=== PATIENT | male | born 1950 | race Caucasian/White ===

== ENCOUNTER 2022-06-05 11:44 | Emergency (ER) | payer MEDICARE, SELFPAY ==
[2022-06-05 11:55] VITALS: BP 138/92; PULSE 66; RESP 14; TEMP 36.1; O2SAT 97; BMI 32.8
--- NOTE | 2022-06-05 13:27 | DI.RAD.S_ITS ---
PROCEDURE: XR LUMBAR SPINE 2-3V INDICATIONS: back pain TECHNIQUE: 3 views of the lumbar spine were acquired. COMPARISON: None. FINDINGS: Bones: 5 [id number] vertebrae are present. There is normal bony alignment. 20% L1 wedge-shaped compression fracture noted, uncertain age. Diffuse disc space narrowing and hypertrophic facet joints noted throughout the exam particularly in the lower lumbar spine. Normal bone mineralization present. Soft tissues: Overlying bowel gas pattern is normal. No suspicious soft tissue calcifications. IMPRESSION: 1. Mild L1 compression fracture, uncertain age. 2. Multilevel degenerative disc disease and arthropathy particularly lower lumbar spine Approved by: Robert Gil M.D. on 06/05/2022 at 14:11
--- NOTE | 2022-06-05 13:30 | ED_ITS ---
HPI - Back Pain/Injury <CJ Isidro - Last Filed: 06/05/22 15:37> General Chief Complaint: Back Pain/Injury Stated Complaint: LOW BACK PAIN Time Seen by Provider: 06/05/22 13:27 Source: patient History of Present Illness HPI Narrative: This is a 71-year-old male with history low back pain with laminectomy of his lumbar spine approximately 20 years ago with history of sciatica down his right leg at that time who presents to the emergency department today for worsening low back pain with radiation down his anterior right leg and down to his lares. Patient states that he has worse pain when he twists to the left side or when he lays on his left side in bed. States that he has not had pain like this since his laminectomy approximately 20 years ago. Denies any incontinence, fever, new weakness, states that occasionally he has shooting pain down the anterior of his leg down to lares and that feels like like weakness. Patient denies any sensation changes at baseline, denies any difficulty ambulating, denies any abdominal pain, nausea vomiting, recent illness. States that he takes Tylenol and ibuprofen as needed pain. But this is worse than usual. Related Data Previous Rx's Medication Instructions Recorded diclofenac sodium 1 % topical gel 4 g topical QID PRN back pain #100 06/05/22 grams hydrocodone 5 mg-acetaminophen 325 1 tab PO BID PRN pain #10 tabs 06/05/22 mg tablet methocarbamol 500 mg tablet 500 mg PO TID PRN muscle spasm #14 06/05/22 tabs Allergies Allergy/AdvReac Type Severity Reaction Status Date / Time No Known Drug Allergies Allergy Verified 06/05/22 11:55 Review of Systems <CJ Isidro - Last Filed: 06/05/22 15:37> Review of Systems Narrative: General: denies fever, chills Head/Neck: denies headache, neck pain Eyes: denies visual changes, eye pain Cardio: denies chest pain, palpitations Respiratory: denies shortness of breath, cough GI: denies abdominal pain, nausea, vomiting, or diarrhea : denies dysuria, hematuria or flank pain MSK: denies new joint pain, muscle weakness or swelling, endorses low back pain which is worsening constant sharp in nature with radiation down the right leg Skin: denies rash, itching or wound Neuro: denies numbness, tingling, dizziness Patient History <JC Isidro - Last Filed: 06/05/22 15:37> Social History Smoking Status: Unknown if ever smoked Smoking Status: Unknown if ever smoked alcohol intake frequency: holidays/special occasions only Substance Use Type: does not use Exam <CJ Isidro - Last Filed: 06/05/22 15:37> Narrative Exam Narrative: Independently reviewed vitals signs and nursing notes. General: Awake, alert, nontoxic, no cardiorespiratory distress Head/Neck: Atraumatic, neck supple Eyes: EOMI, conjunctiva normal Nose: nares patent, no rhinorrhea Mouth/Throat: moist mucus membranes Cardio: Regular rate and rhythm, no peripheral edema Respiratory: respirations unlabored without wheezing, stridor, or rales. No retractions, hypoxia or tachypnea GI: Abdomen soft, nontender to palpation x4 quadrants, no guarding or rebound tenderness MSK: Moves all extremities, neurovascularly intact, range of motion without deficit, no unilateral weakness, ambulatory with steady gait, no tenderness along lumbar spine, paraspinal musculature is tense Skin: Normal capillary refill, no rash Neuro: Normal speech and cognition, normal gait Initial Vital Signs Initial Vital Signs: Vital Signs Temperature 97.0 F L 06/05/22 11:55 Pulse Rate 66 06/05/22 11:55 Respiratory Rate 14 06/05/22 11:55 Blood Pressure 138/92 H 06/05/22 11:55 Pulse Oximetry 97 06/05/22 11:55 Oxygen Delivery Method 06/05/22 11:55 <Roxie Vivas DO - Last Filed: 06/11/22 09:02> Initial Vital Signs Initial Vital Signs: Vital Signs Temperature 97.0 F L 06/05/22 11:55 Pulse Rate 66 06/05/22 11:55 Respiratory Rate 14 06/05/22 11:55 Blood Pressure 138/92 H 06/05/22 11:55 Pulse Oximetry 97 06/05/22 11:55 Oxygen Delivery Method 06/05/22 11:55 Course <CJ Isidro - Last Filed: 06/05/22 15:37> Orders Ordered: Discontinued Medications Hydrocodone Bitart/Acetaminophen (Hydrocodone/Acet 5/325 Tablet) 1 tab PO NOW ONE Stop: 06/05/22 13:28 Last Admin: 06/05/22 14:52 Dose: 1 tab Documented By: ONEYDA Ketorolac Tromethamine (Ketorolac 30 Mg/Ml Vial) 15 mg IM NOW ONE Stop: 06/05/22 13:28 Last Admin: 06/05/22 14:52 Dose: 15 mg Documented By: ONEYDA Lidocaine (Lidocaine Patch 1 Each Adh..Patch) 1 each TOP NOW ONE Stop: 06/05/22 13:28 Last Admin: 06/05/22 14:53 Dose: 1 each Documented By: ONEYDA Methocarbamol (Methocarbamol 500 Mg Tablet) 500 mg PO NOW ONE Stop: 06/05/22 13:28 Last Admin: 06/05/22 14:52 Dose: 500 mg Documented By: ONEYDA Vital Signs Vital signs: Vital Signs - 8 hr 06/05/22 11:55 Temperature 97.0 F L Pulse Rate 66 Respiratory Rate 14 Blood Pressure 138/92 H Pulse Oximetry 97 Oxygen Delivery Method Room Air <Roxie Vivas, - Last Filed: 06/11/22 09:02> Orders Ordered: Discontinued Medications Hydrocodone Bitart/Acetaminophen (Hydrocodone/Acet 5/325 Tablet) 1 tab PO NOW ONE Stop: 06/05/22 13:28 Last Admin: 06/05/22 14:52 Dose: 1 tab Documented By: ONEYDA Ketorolac Tromethamine (Ketorolac 30 Mg/Ml Vial) 15 mg IM NOW ONE Stop: 06/05/22 13:28 Last Admin: 06/05/22 14:52 Dose: 15 mg Documented By: ONEYDA Lidocaine (Lidocaine Patch 1 Each Adh..Patch) 1 each TOP NOW ONE Stop: 06/05/22 13:28 Last Admin: 06/05/22 14:53 Dose: 1 each Documented By: ONEYDA Methocarbamol (Methocarbamol 500 Mg Tablet) 500 mg PO NOW ONE Stop: 06/05/22 13:28 Last Admin: 06/05/22 14:52 Dose: 500 mg Documented By: ONEYDA Vital Signs Vital signs: Vital Signs - 8 hr 06/05/22 11:55 Temperature 97.0 F L Pulse Rate 66 Respiratory Rate 14 Blood Pressure 138/92 H Pulse Oximetry 97 Oxygen Delivery Method Room Air [facility] - Back Pain/Injury <Lorelei Ayala, [facility] - Last Filed: 06/05/22 15:37> Imaging Data lumbar spine xr: Radiologist's Impression: PROCEDURE:? XR LUMBAR SPINE 2-3V ? INDICATIONS:? back pain ? TECHNIQUE:? 3 views of the lumbar spine were acquired.? ? COMPARISON:? None. ? FINDINGS:? ? Bones:? 5 [id number] vertebrae are present.? There is normal bony alignment.? 20% L1 wedge-shaped compression fracture noted, uncertain age.? Diffuse disc space narrowing and hypertrophic facet joints noted throughout the exam particularly in the lower lumbar spine.? Normal bone mineralization present. ? Soft tissues:? Overlying bowel gas pattern is normal.? No suspicious soft tissue calcifications.? ? ? IMPRESSION:? ? 1. Mild L1 compression fracture, uncertain age. ? 2. Multilevel degenerative disc disease and arthropathy particularly lower lumbar spine ? ? ? Approved by: Robert Gil M.D. on 06/05/2022 at 14:11? [facility] Narrative Medical decision making narrative: This is a 71-year-old male who presents to the emergency department with exa cerbation of his low back pain sciatica symptoms down the anterior of his right leg down to his anterior mid shaft lower leg. Twenty years ago patient had an L1 compression fracture with subsequent laminectomy and has been relatively pain-free most of the time since this surgery. He endorses increased activity over the last few days. X-ray of his lumbar spine shows a mild L1 compression fracture with uncertain age, and multilevel degenerative disc disease and arthropathy particularly lower lumbar spine. Patient presents with 3 days of lower back pain, atraumatic, afebrile. Given history and exam, suspect likely musculoskeletal etiology, he is nontoxic appearing with no overt risk factors for epidural hematoma or abscess. No overt evidence or acute critical cord compression with nonfocal neuro exam. Neurovascularly intact distally, no evidence infection, no peritoneal signs or abdominal pain on exam low suspicion for AAA. He does not have any weakness, incontinence, neurovascular or sensation changes or concerning findings for cauda equina syndrome, lumbar fracture, neuropathic pain, epidural abscess, or meningitis, this could also be a herniated disk, paraspinal/other muscle strain, osteoarthritis, nephrolithiasis, pyelonephritis, chronic neuropathic pain, and other considered. Recommend patient follow-up with his primary care provider if not improving. In the emergency department he was given Toradol, hydrocodone, and Robaxin with moderate pain relief. Encouraged to use hydrocodone for breakthrough pain in addition to Tylenol and ibuprofen at home with Robaxin as needed. Patient is appropriate and amenable to discharge home. Vital signs are stable on repeat examination is unremarkable. Patient has been informed of results. Patient has been given strict return to ER precautions for any new or worsening symptoms. Patient understands to follow up closely with outpatient providers as instructed. Patient understands plan and agrees to discharge home. All questions and concerns answered at this time. Discharge Plan Departure Patient Disposition: Home Clinical Impression: Arthropathy of lumbar facet joint Acute back pain with sciatica Qualifiers: Laterality: right Qualified Code(s): M54.41 - Lumbago with sciatica, right side Instructions: DI for Arthralgia, DI for Back Pain With Sciatica, DI for Back Strain or Sprain Activity Restrictions/Additional Instructions: You are evaluated in the emergency department today for back pain, your evaluation suggest no acute abnormalities which require further intervention at this time. Move around as tolerated but avoid heavy lifting or significant exertion. Bed rest does not recommended nor is it the best treatment for low back pain. Please try ibuprofen 800 mg every 8 hours for pain with food and water, methocarbamol, a muscle relaxer, one tab every 8 hours as needed for muscle spasms, caution this will make you sleepy, please do not drive or operate a vehicle with this. Do not drink alcohol, drive a car, operate machinery, or get up on ladders or heights when taking any prescribed pain medications. Do not drive home if you received prescribed pain medication here in the emergency department. Please follow-up with your primary care provider as needed, return to the emergency department immediately if you develop incontinence or difficulty urinating, inability to control your bowels, new numbness or weakness in her legs or numbness in your groin, the inability to walk, fever, or worsening symptoms which are making you ill. I recommend physical therapy and follow-up with your primary care provider for a referral for that and for any outpatient imaging as needed. *What to do: *Please continue to take your regular medications as directed. [ x] New medication prescriptions sent to your pharmacy: [ [facility]] [ ] New medication written as a paper prescription [ ] No new medications given *Please follow up with your primary care provider in 2-3 days, call for an appointment. Let them know you were seen in the Emergency Department and that we asked that you be seen for follow-up. We will electronically transmit a record of today's note if your PCP is in our system *If you do not have a primary care provider please contact [phone] to establish care with one of the [facility] primary care providers. *Return to Emergency Department if you should have any new, worsening or concerning symptoms, such as [fever greater than 101F, chills, worsening pain, persistent vomiting or other bothersome symptoms] Prescriptions: New methocarbamol 500 mg tablet 500 mg PO TID PRN (Reason: muscle spasm) Qty: 14 0RF diclofenac sodium 1 % gel 4 g topical QID PRN (Reason: back pain) Qty: 100 0RF Rx Instructions: apply to single knee, ankle, foot; for foot includes sole/toes/top of foot hydrocodone-acetaminophen 5-325 mg tablet 1 tab PO BID PRN (Reason: pain) Qty: 10 0RF Referrals: Shon Hemphill MD [Primary Care Provider] - Visit Report Forms: Patient Portal/API <Roxie Vivas DO - Last Filed: 06/11/22 09:02> Cosign ED Attending Bennyature Attestation: I was immediately available in the department for consultation. Documentation has been reviewed. I agree with assessment and plan.
[2022-06-05] MEDS: methocarbamoL 500 MG TABLET PO (14:52)
[2022-06-05] MEDS: HYDROCODONE/ACET 5/325 TABLET 1 TAB PO (14:52)
[2022-06-05] MEDS: KETOROLAC 30 MG/ML VIAL 15 MG IM (14:52)
[2022-06-05] MEDS: LIDOCAINE PATCH 1 EACH ADH..PATCH TOP (14:53)
[2022-06-05 15:38] VITALS: BP 148/86; PULSE 67; O2SAT 97
== END 2022-06-05 15:39 | disposition home or self-care (01) ==
PROVIDERS: Emergency Provider Nurse Practitioner Critical Care Medicine; PCP Internal Medicine
DX: M54.41 Lumbago with sciatica, right side (principal); M47.816 Spondylosis without myelopathy or radiculopathy, lumbar region
CPT/HCPCS: 72100; 96372; 99283; J1885

== ENCOUNTER → 2022-06-24 14:28 | Outpatient (CLI) | payer MEDICARE, SELFPAY ==
--- NOTE | 2022-06-24 14:30 | DI.MRI.S_ITS ---
PROCEDURE: MR LUMBAR SPINE WO CON INDICATIONS: Radiculopathy, lumbar region TECHNIQUE: Noncontrast sagittal T1 spin echo and T2 fast echo, sagittal STIR, and T2 fast spin echo through the lumbar spine. In cases with scoliosis, additional coronal T2 fast spin echo may be performed. COMPARISON: [facility], CR, XR LUMBAR SPINE 2-3V, 06/05/2022, 13:16. FINDINGS: Image quality: Excellent. Alignment and Curvature: There is normal bony alignment. Bone Marrow: Marrow is of normal overall signal. No acute vertebral body compression fractures. Spinal Cord: Conus medullaris terminates at the L1 level. Visualized cord demonstrates normal signal and size. Paraspinous Soft Tissues: No paravertebral masses. T12-L1: No canal stenosis or foraminal stenosis. L1-L2: Mild disc bulge, eccentric to the right. Mild facet hypertrophy. No canal stenosis. Mild bilateral foraminal narrowing. L2-L3: Disc bulge. Facet hypertrophy. Moderate canal stenosis. Moderate right foraminal narrowing with mild flattening deformity on the exiting right L2 nerve root. Mild left foraminal narrowing. L3-L4: Disc bulge. Facet hypertrophy. Moderate to severe canal stenosis. [id number] bilateral foraminal narrowing. L4-L5: Disc bulge. Facet hypertrophy. No canal stenosis. A right foraminal disc extrusion contributes to severe right foraminal narrowing and right foraminal L4 nerve root impingement. Reference image 7 of series 2--T2 sagittal sequence, and image 24 of series 5--T2 axial sequence. L5-S1: Disc bulge. Facet hypertrophy. No canal stenosis. Moderate to severe bilateral foraminal narrowing with flattening deformity on the exiting bilateral L5 nerve roots. IMPRESSION: 1. Diffuse degenerative change with multilevel facet arthropathy. 2. Canal stenosis is moderate at L2-L3 and moderate to severe at L3-L4. 3. At L4-L5, there is a right foraminal disc extrusion which contributes to severe right foraminal narrowing and right L4 nerve root impingement. 4. There is bilateral moderate to severe foraminal narrowing at L5-S1. Dictated by: Celio Harding M.D. on 06/24/2022 at 15:15 Approved by: Celio Harding M.D. on 06/24/2022 at 15:21
== END ==
PROVIDERS: PCP Internal Medicine; Referring Provider Internal Medicine; Visit Provider Internal Medicine
DX: M47.26 Other spondylosis with radiculopathy, lumbar region (principal); M47.27 Other spondylosis with radiculopathy, lumbosacral region; M51.16 Intervertebral disc disorders with radiculopathy, lumbar region; M48.061 Spinal stenosis, lumbar region without neurogenic claudication; M48.07 Spinal stenosis, lumbosacral region
CPT/HCPCS: 72148